=== PATIENT | male | born 1980 | race Caucasian/White ===

== ENCOUNTER 2017-09-28 20:55 | Emergency (ER) | payer OTHER, SELFPAY ==
[2017-09-28 20:56] VITALS: BP 147/79; PULSE 68; RESP 16; TEMP 36.6; O2SAT 98; BMI 27.6
--- NOTE | 2017-09-28 23:28 | ED.VISSUMM ---
- ER Visit Summary Date of Service: 09/28/17 Chief Complaint: Rectal pain History of Present Illness: The patient is a [address] Hoffman. Reports he has rectal pain began approximately 10 days ago. It is a sharp pain Zeta 10 at worst and 7 out of 10 currently. Is worsened by sitting. He is used Preparation H without relief. Reports that he has not had diarrhea. However, he has had loose stools. No blood in his stools or black tarry stools. No abdominal pain, nausea, vomiting, dysuria, or other complaints. Physical Examination: Vitals: Stable. Afebrile. General: Well-nourished and well-developed. Head: Normocephalic atraumatic. Neck: Supple, no lymphadenopathy. No JVD. Nontender. Cardiovascular: Regular rate and rhythm. No murmurs. Respiratory: No respiratory distress. Clear to auscultation bilaterally. Abdominal: Soft, nontender, nondistended, normal bowel sounds. No guarding, rebound, or peritoneal signs. Rectal: Pea-sized nonthrombosed hemorrhoid at 3:00 in the prone position. Back: Nontender. Extremities: Nontender, no edema. Skin: Normal color, no rash. Neurologic: Alert and oriented ?3. Cranial nerves II through XII are intact. Normal strength and sensation. Psych: Normal affect. Emergency Department Course and Treatment: Patient was reassured and is resting comfortably. Treatment Plan: Patient will be discharged with Proctofoam HC and instructed to follow-up with Dr. Araya in 1 week if not improving. Return to the emergency department for any worsening symptoms. Disposition: To home in improved and stable condition. Impression: 1. External hemorrhoids. This note was generated with [employer] dictation software. It may contain incorrect words, spelling, and punctuation that were not noted in review of the chart prior to signing ED Disposition - Plan for ED Patient: Chief Complaint: Other, Pain/Inj Instructions: ED Hemorrhoids Prescriptions: Hydrocortisone/Pramoxine [Proctofoam-Hc Foam] 1 applicatio RC 4X/DAY #1 tube Referrals: Tiffany Araya MD [STAFF PHYSICIAN] - 1 Week if not improving
[2017-09-28 23:41] VITALS: PULSE 61; RESP 17; O2SAT 99
[2017-09-28 23:45] VITALS: BP 123/66; PULSE 59; RESP 18; O2SAT 98
== END 2017-09-29 00:09 | disposition home or self-care (01) ==
PROVIDERS: Emergency Provider Emergency Medicine; Family Provider Nurse Practitioner Family; PCP Nurse Practitioner Family
DX: K64.4 Residual hemorrhoidal skin tags (principal); Z72.0 Tobacco use; Z79.899 Other long term (current) drug therapy
CPT/HCPCS: 99282

== ENCOUNTER 2018-06-04 10:48 | Emergency (ER) | payer OTHER, SELFPAY ==
[2018-06-04 10:50] VITALS: BP 156/99; PULSE 60; RESP 12; TEMP 36.8; O2SAT 100; BMI 27.1
--- NOTE | 2018-06-04 11:10 | RAD_ITS ---
STUDY: X-RAY - RIGHT SHOULDER REASON FOR EXAM: Male, 38 years old. Pain following injury. TECHNIQUE: 4 view(s) of the shoulder. COMPARISON: None. FINDINGS: Normal glenohumeral articulation. Normal acromioclavicular joint. Normal acromion. Normal humeral head and visualized proximal humerus. The soft tissue structures are unremarkable. Normal visualized pulmonary apex. RAD/Shoulder min 2 Views IMPRESSION: Normal x-ray examination of the shoulder. Electronically Signed: Giancarlo García, at 11:29 EDT , Service support ,
--- NOTE | 2018-06-04 11:52 | ED.DCSUM_ITS ---
- ER Visit Summary Date of Service: 06/04/18 Chief Complaint: [Right shoulder injury] History of Present Illness: The patient is a 38 M [presents the emergency department complaint of pain in his right shoulder that started yesterday after he threw a piece of firewood that he was cutting. Patient developed a burning sensation in the posterior part of his shoulder. Patient continued to cut firewood but this morning he was having a hard time moving the shoulder at all. Patient is ambidextrous but does use mostly his right arm.] Physical Examination: [HEENT-PERRLA, EOMI. Cranial nerves II through XII grossly intact. TMs clear. Mucous membranes moist. No adenopathy. Cardiovascular-regular rate and rhythm without murmur or ectopy Lungs-clear to auscultation, chest wall stable without crepitus or subcu emphysema Abdomen-normoactive bowel sounds, soft, nontender, no rebound or rigidity, no peritoneal signs. Extremities-intact ?4, normal range of motion, normal pulses, atraumatic. Right shoulder-atraumatic without deformity. Patient has pain with abduction at the shoulder. Patient has tenderness palpation over the posterior glenohumeral joint. Neurovascular intact distally. Deep tendon reflexes are plus 2 out of 4 bilaterally at the biceps, triceps, brachial radialis. Patient has normal appian developer strength.] Test Results: [X-rays of the right shoulder were normal] Emergency Department Course and Treatment: [Patient was given a sling and referral to orthopedics] Treatment Plan: [Patient given a prescription for [place] for pain and referral to orthopedics as well as work restrictions] Disposition: [Discharged home in stable condition] Impression: [Right shoulder sprain-possible internal derangement] This note was generated with [employer] dictation software. It may contain incorrect words, spelling, and punctuation that were not noted in review of the chart prior to signing ED Disposition - Plan for ED Patient: Referrals: Crystal Hoffman, [facility] [Primary Care Provider] -
--- NOTE | 2018-06-04 11:52 | ED.DEP ---
ED Disposition - Plan for ED Patient: Instructions: ED Sprain Shoulder Prescriptions: Hydrocodone Bitart/Apap 5-325 [[place] 5MG-325MG] 1 tab PO Q4H PRN PRN 2 Days #10 tab PRN Reason: Pain Naproxen [Naprosyn] 500 mg PO BID PRN #20 tab Referrals: Crystal Hoffman, [facility] [Primary Care Provider] - Thaddeus Hadry MD [STAFF PHYSICIAN] - 3-5 Days
[2018-06-04 12:18] VITALS: BP 136/96; RESP 14
== END 2018-06-04 12:19 | disposition home or self-care (01) ==
LOC: ED 11:29
PROVIDERS: Emergency Provider Emergency Medicine; Family Provider Nurse Practitioner Family; PCP Nurse Practitioner Family
DX: S43.401A Unspecified sprain of right shoulder joint, initial encounter (principal); Z72.0 Tobacco use; X50.0XXA Overexertion from strenuous movement or load, initial encounter; Y93.H9 Activity, other involving exterior property and land maintenance, building and construction; Y92.007 Garden or yard of unspecified non-institutional (private) residence as the place of occurrence of the external cause; Y99.8 Other external cause status
CPT/HCPCS: 73030; 99282